=== PATIENT | female | born 1980 | race Caucasian/White ===

== ENCOUNTER → 2017-01-30 | Outpatient (REF) | payer OTHER ==
[2017-01-30 16:27] LABS: FOLATE > 24.0 NG/ML
[2017-01-30 16:29] LABS: VITAMIN B12 LEVEL 673 PG/ML
== END ==
LOC: M LABDRAW1 15:48
PROVIDERS: ATTEND Nurse Practitioner Adult Health
DX: E53.8 Deficiency of other specified B group vitamins (principal)

== ENCOUNTER → 2017-03-14 | Outpatient (REF) | payer OTHER | LOC: M LAB REF 11:22 | PROVIDERS: ATTEND Nurse Practitioner Women's Health | DX: N39.0 Urinary tract infection, site not specified (principal) ==

== ENCOUNTER → 2018-03-26 | Outpatient (REF) | payer OTHER ==
[2018-03-26 12:17] LABS: BASO % 0.8 % (0.0-1.0); EOS # 0.1 10^3/uL (0.0-0.50); HEMATOCRIT 38.9 % (36.0-47.0); HEMOGLOBIN 13.1 g/dl (12.0-15.5); IMMATURE GRANULOCYTE % 0.2 % (0-3.0); LYMPH # 1.7 10^3/uL (1.5-4.5); LYMPH % 32.7 % (24.0-44.0); MEAN CORPUSCULAR HEMOGLOBIN 30.7 pg (27.0-33.0); MEAN CORPUSCULAR HGB CONC 33.7 g/dl (32.0-36.5); MEAN CORPUSCULAR VOLUME 91.1 fl (80.0-96.0); MONO # 0.4 10^3/uL (0.0-0.8); MONO % 8.5 % (0.0-5.0); NEUTROPHILS # 2.8 10^3/uL (1.8-7.7); NEUTROPHILS % 55.8 % (36.0-66.0); PLATELET COUNT, AUTOMATED 257 10^3/uL (150-450); RED BLOOD COUNT 4.27 10^6/uL (4.00-5.40); RED CELL DISTRIBUTION WIDTH 12.1 % (11.5-14.5); WHITE BLOOD COUNT 5.1 10^3/uL (4.0-10.0)
[2018-03-26 17:36] LABS: ALKALINE PHOSPHATASE 56 U/L (45-117); ALT/SGPT 16 U/L (12-78); ANION GAP 8 MEQ/L (8-16); AST/SGOT 5 U/L (7-37); BILIRUBIN,TOTAL 0.6 MG/DL (0.2-1.0); BLOOD UREA NITROGEN 14 MG/DL (7-18); CALCIUM LEVEL 9.6 MG/DL (8.5-10.1); CARBON DIOXIDE LEVEL 27 MEQ/L (21-32); CHLORIDE LEVEL 104 MEQ/L (98-107); CHOLESTEROL LEVEL 143 MG/DL (<200); CHOLESTEROL RISK RATIO 2.344 (<5); CREATININE FOR GFR 0.67 MG/DL (0.55-1.30); GLOMERULAR FILTRATION RATE > 60.0 (>60); GLUCOSE, FASTING 97 MG/DL (70-100); HDL CHOLESTEROL 61 MG/DL (>40); NON-HDL-C 82 MG/DL; POTASSIUM SERUM 4.6 MEQ/L (3.5-5.1); SODIUM LEVEL 139 MEQ/L (136-145); TRIGLYCERIDES LEVEL 44 MG/DL (<150)
[2018-03-26 17:37] LABS: ALBUMIN 4.5 GM/DL (3.2-5.2); FREE T4 1.02 NG/DL (0.76-1.46); LDL CHOLESTEROL 73 MG/DL (<100); TOTAL PROTEIN 7.5 GM/DL (6.4-8.2)
[2018-03-26 19:22] LABS: TOTAL 25(OH) VITAMIN D 33.8 NG/ML (30.0-100.0); VITAMIN B12 LEVEL 1029 PG/ML (247-911)
== END ==
LOC: M LABDRAW1 10:56
DX: I10 Essential (primary) hypertension (principal)
CPT/HCPCS: 84443

== ENCOUNTER → 2019-05-21 | Outpatient (REF) | payer OTHER ==
[2019-05-21 17:04] LABS: FOLLICLE STIMULATING HORMONE 3.4 mIU/mL; FREE T4 0.95 NG/DL (0.76-1.46); LUTEINIZING HORMONE 0.7 mIU/mL; PROLACTIN 8.6 NG/ML; THYROID STIMULATING HORMONE 1.07 uIU/ML (0.358-3.740)
== END ==
LOC: M LABDRAW1 15:27
PROVIDERS: ATTEND Licensed Practical Nurse
DX: Z12.4 Encounter for screening for malignant neoplasm of cervix (principal)

== ENCOUNTER → 2019-07-16 | Outpatient (REF) | payer OTHER ==
[2019-07-16 18:21] LABS: HCG, SERUM QUANTITATIVE < 1.0 MIU/ML
[2019-07-16 18:27] LABS: LUTEINIZING HORMONE 5.5 mIU/mL; PROGESTERONE 0.66 NG/ML; PROLACTIN 5.7 NG/ML
[2019-07-16 18:28] LABS: FOLLICLE STIMULATING HORMONE 8.8 mIU/mL
[2019-07-16 19:06] LABS: HEMOGLOBIN A1c 5.2 %
[2019-07-17 10:17] LABS: HEPATITIS B SURFACE ANTIGEN NEGATIVE (NEGATIVE)
[2019-07-17 10:46] LABS: HEPATITIS C VIRUS ABY INDEX < 0.0 INDEX (<0.8)
[2019-07-17 10:48] LABS: HIV 1&2 SCREEN CENTAUR NEGATIVE (NEGATIVE)
[2019-07-20 10:56] LABS: HEPATITIS B SURFACE ANTIBODY POSITIVE (POSITIVE)
== END ==
LOC: M LABDRAW1 16:54
DX: N97.9 Female infertility, unspecified (principal)

== ENCOUNTER → 2020-09-23 | Outpatient (REF) | payer OTHER ==
[2020-09-23 19:11] LABS: INFLUENZA A AMPLIFICATION NEGATIVE (NEGATIVE); INFLUENZA B AMPLIFICATION NEGATIVE (NEGATIVE)
== END ==
LOC: M LAB REF 18:06
PROVIDERS: ATTEND Physician Assistant
DX: J11.1 Influenza due to unidentified influenza virus with other respiratory manifestations (principal); R19.7 Diarrhea, unspecified; R50.9 Fever, unspecified

== ENCOUNTER → 2022-12-26 | Outpatient (REF) | payer OTHER ==
[2022-12-26 16:38] LABS: BASO % 0.5 % (0.0-1.0); EOS # 0.1 10^3/uL (0.0-0.5); EOS % 1.4 % (0.0-3.0); HEMATOCRIT 40.6 % (36.0-47.0); HEMOGLOBIN 13.5 g/dl (12.0-15.5); LYMPH # 1.8 10^3/uL (1.5-5.0); LYMPH % 19.7 % (24.0-44.0); MEAN CORPUSCULAR HEMOGLOBIN 31.7 pg (27.0-33.0); MEAN CORPUSCULAR HGB CONC 33.3 g/dl (32.0-36.5); MEAN CORPUSCULAR VOLUME 95.3 fl (80.0-96.0); MONO # 0.5 10^3/uL (0.0-0.8); NEUTROPHILS # 6.4 10^3/uL (1.5-8.5); NEUTROPHILS % 71.9 % (36.0-66.0); PLATELET COUNT, AUTOMATED 288 10^3/uL (150-450); RED BLOOD COUNT 4.26 10^6/uL (4.00-5.40); WHITE BLOOD COUNT 8.9 10^3/uL (4.0-10.0)
[2022-12-26 16:40] LABS: ALBUMIN 4.9 G/DL (3.2-5.2); ALKALINE PHOSPHATASE 57 U/L (46-116); ALT/SGPT 24 U/L (7.0-40); AST/SGOT < 8 U/L (<34); BILIRUBIN,TOTAL 0.5 MG/DL (0.3-1.2); BLOOD UREA NITROGEN 10 MG/DL (9-23); CALCIUM LEVEL 10.7 MG/DL (8.5-10.1); CARBON DIOXIDE LEVEL 26 MMOL/L (20-31); CHLORIDE LEVEL 104 MMOL/L (98-107); CHOLESTEROL LEVEL 168 MG/DL (<200); CHOLESTEROL RISK RATIO 2.73 (<5); CREATININE FOR GFR 0.56 MG/DL (0.55-1.30); GLOMERULAR FILTRATION RATE > 60.0 (>58); GLUCOSE, FASTING 84 MG/DL (60-100); HDL CHOLESTEROL 61.4 MG/DL (>40); IRON (FE) 88 UG/DL (50-170); LDL CHOLESTEROL 85.2 MG/DL (<100); NON-HDL-C 106.6 MG/DL; POTASSIUM SERUM 4.4 MMOL/L (3.5-5.1); SODIUM LEVEL 137 MMOL/L (136-145); TOTAL PROTEIN 7.7 G/DL (5.7-8.2); TRIGLYCERIDES LEVEL 107 MG/DL (<150)
[2022-12-26 16:42] LABS: FREE T4 1.14 NG/DL (0.89-1.76); VITAMIN B12 LEVEL 519 PG/ML (211-911)
== END ==
LOC: M SFHCADAM 15:55
PROVIDERS: ATTEND Family Medicine
DX: Z00.00 Encounter for general adult medical examination without abnormal findings (principal); Z86.39 Personal history of other endocrine, nutritional and metabolic disease

== ENCOUNTER → 2023-02-01 | Outpatient (REF) | payer OTHER | LOC: M LAB REF 11:02 | PROVIDERS: ATTEND Physician Assistant | DX: B34.9 Viral infection, unspecified (principal) ==

== ENCOUNTER → 2023-09-11 | Outpatient (REF) | payer BC, OTHER | LOC: M LAB REF 13:40 | PROVIDERS: ATTEND Physician Assistant | DX: B34.9 Viral infection, unspecified (principal); J10.1 Influenza due to other identified influenza virus with other respiratory manifestations ==